=== PATIENT | male | born 1955 | race Caucasian/White ===

== ENCOUNTER 2017-07-19 15:58 | Emergency (ER) | payer MEDICAID ==
[~2017-07-19] VITALS: Ht 177.8 cm; Wt 100.0 kg
[2017-07-19] MEDS ORDERED: ASPI81 PO (16:08)
[2017-07-19] MEDS ORDERED: FERR-89 PO (16:08)
[2017-07-19] MEDS ORDERED: OMEP20 PO (16:08)
[2017-07-19] MEDS ORDERED: ATOR20TA86 PO (16:08)
[2017-07-19] MEDS ORDERED: GABA-529 PO (16:08)
[2017-07-19] MEDS ORDERED: GLIP10 PO (16:08)
[2017-07-19] MEDS ORDERED: LISI-662 PO (16:08)
[2017-07-19] MEDS ORDERED: METF500T6 PO (16:08)
[2017-07-19] MEDS ORDERED: INSLAN SQ (16:08)
[2017-07-19 16:27] LABS: GLUCOSE,POINT OF CARE 138 MG/DL (70-110)
[2017-07-19 18:47] LABS: EOSINOPHILS % (AUTO) 3.1 % (1.0-6.0); HEMATOCRIT 36.4 % (41-53); HEMOGLOBIN 11.5 g/dL (13.5-17.5); LYMPHOCYTES % (AUTO) 31.6 % (22.0-44.0); MEAN CORPUSCULAR HEMOGLOBIN 20.3 pg (26.0-34.0); MEAN CORPUSCULAR HGB CONC 31.4 G/dL (31.0-37.0); MEAN CORPUSCULAR VOLUME 65 fL (80-100); MONOCYTES # (AUTO) 0.6 K/uL (0.1-1.0); MONOCYTES % (AUTO) 9.4 % (2.0-9.0); NEUTROPHILS # (AUTO) 3.5 K/uL (1.8-7.7); NEUTROPHILS % (AUTO) 54.9 % (40.0-70.0); PLATELET COUNT (AUTO) 223 K/uL (150-450); RED BLOOD CELL COUNT(AUTO) 5.65 MIL/uL (4.50-5.90); RED CELL DISTRIBUTION WIDTH 17.9 % (11.5-14.5)
[2017-07-19 18:51] LABS: APPEARANCE,URINE TURBID (CLEAR); BILIRUBIN,URINE NEGATIVE (NEGATIVE); GLUCOSE, URINE (UA) NEGATIVE (NEGATIVE); KETONES,URINE TRACE mg/dL (NEGATIVE); LEUKOCYTE ESTERASE ,URINE SMALL (NEGATIVE); NITRATE,URINE NEGATIVE (NEGATIVE); OCCULT BLOOD,URINE LARGE (NEGATIVE); PH,URINE 6.5 (5.0-8.0); PROTEIN,URINE SEE CONFIRM (NEGATIVE)
[2017-07-19 19:08] LABS: ANION GAP 6 mmol/L (8-16); CALCIUM, TOTAL 9.7 mg/dL (8.8-10.5); CARBON DIOXIDE 28 mmol/L (22-29); CHLORIDE 105 mmol/L (98-107); CREATININE 1.16 mg/dL (0.60-1.30); GLOMERULAR FILTR. RATE CALC > 60 mL/min (>60); GLUCOSE,RANDOM 96 mg/dL (70-110); POTASSIUM 4.6 mmol/L (3.5-5.1); SODIUM SERUM 139 mmol/L (136-145); UREA NITROGEN, BLOOD 14 mg/dL (7-18)
[2017-07-19 19:20] LABS: ALANINE AMINOTRANSFERASE 28 U/L (12-78); ALBUMIN 3.6 g/dL (3.4-5.0); ALKALINE PHOSPHATASE 97 U/L (46-116); ASPARTATE AMINOTRANSFERASE 15 U/L (15-37); BILIRUBIN,TOTAL 0.3 mg/dL (0.1-1.0); TOTAL PROTEIN, SERUM 7.8 g/dL (6.4-8.2)
[2017-07-19 19:20] LABS: BACTERIA,URINE None Seen /HPF (None Seen); RBC,URINE Full Field /HPF (0-2); SULFOSALICYLIC ACID,URINE 3+ (Negative)
[2017-07-19 21:06] VITALS: BP 145/79
== END 2017-07-19 21:30 | disposition home or self-care (01) ==
LOC: EMS 16:01
DX: R31.0 Gross hematuria (principal); N13.9 Obstructive and reflux uropathy, unspecified; E11.9 Type 2 diabetes mellitus without complications; E78.00 Pure hypercholesterolemia, unspecified; I10 Essential (primary) hypertension; Z85.51 Personal history of malignant neoplasm of bladder; Z79.4 Long term (current) use of insulin; Z79.82 Long term (current) use of aspirin
CPT/HCPCS: 51702; 99284

== ENCOUNTER 2018-03-29 18:41 | Emergency (ER) | payer MEDICAID ==
[~2018-03-29] VITALS: Ht 175.3 cm; Wt 100.0 kg
[~2018-03-29 18:41] MED LIST: ASPI81 PO; ATOR20TA86 PO; FERR-89 PO; GABA-529 PO; GLIP10 PO; INSLAN SQ; LISI-662 PO; METF-960 PO; OMEP20 PO
[2018-03-29 18:48] VITALS: BP 126/45
[2018-03-29 18:59] LABS: GLUCOSE,POINT OF CARE 146 MG/DL (70-110)
[2018-03-29] MEDS ORDERED: ACETAMINOPHEN 650 MG/20.3 ML SOLUTION UDCUP PO ONE (21:00)
[2018-03-29] MEDS ORDERED: DEXAMETHASONE SOD PHOS 4 MG/ML 5 ML VIAL IM ONE (21:30)
[2018-03-29] MEDS ORDERED: PENICILLIN G BENZATHINE LA 1,200,000 UNITS/2 ML SYRINGE IM ONE (21:30)
== END 2018-03-29 21:58 | disposition home or self-care (01) ==
LOC: EMS 18:42
DX: J02.8 Acute pharyngitis due to other specified organisms (principal); I10 Essential (primary) hypertension; E11.9 Type 2 diabetes mellitus without complications; E78.00 Pure hypercholesterolemia, unspecified; Z79.4 Long term (current) use of insulin; Z79.82 Long term (current) use of aspirin
CPT/HCPCS: 82962; 96372; 99283; J0561; J1100